=== PATIENT | female | born 1950 | race Caucasian/White ===

== ENCOUNTER 2023-05-29 18:36 | Emergency (ER) | payer OTHER ==
[~2023-05-29] VITALS: Ht 154.9 cm; Wt 38.1 kg
[2023-05-29 18:40] VITALS: BP_SYST 197; PULSE 98; RESP 16; TEMP 98.1; O2SAT 97
[2023-05-29] MEDS ORDERED: ACETAMINOPHEN 325 MG TABLET PO ONE (19:00)
[2023-05-29] MEDS ORDERED: KETOROLAC TROMETHAMINE 15 MG VIAL IVP ONE (19:00)
[2023-05-29] MEDS ORDERED: DICL20GE TP (21:21)
[2023-05-29] MEDS ORDERED: ACET325T PO (21:21)
[2023-05-29 21:40] VITALS: BP_SYST 181; PULSE 100; RESP 20; TEMP 98; O2SAT 96
== END 2023-05-29 21:40 | disposition home or self-care (01) ==
LOC: SED 18:36
DX: S70.01XA Contusion of right hip, initial encounter (principal); I10 Essential (primary) hypertension; Z79.899 Other long term (current) drug therapy; W01.0XXA Fall on same level from slipping, tripping and stumbling without subsequent striking against object, initial encounter; Y93.89 Activity, other specified; Y92.89 Other specified places as the place of occurrence of the external cause; Y99.8 Other external cause status
CPT/HCPCS: 99284; 73502; 73552; 96372; 72170; J1885